=== PATIENT | male | born 1955 ===

== ENCOUNTER 2022-04-15 07:48 | Outpatient (CLI) | payer OTHER ==
[2022-04-15] MEDS ORDERED: Iopamidol 370 76% 100 ML VIAL ONE (09:44)
== END 2022-04-15 07:49 | disposition home or self-care (01) ==
LOC: CSHCT 07:48
PROVIDERS: ATTEND Otolaryngology Otolaryngic Allergy
DX: H93.A1 Pulsatile tinnitus, right ear (principal)
CPT/HCPCS: 70496; 70498; 82565; Q9967